=== PATIENT | female | born 1985 | race Caucasian/White ===

== ENCOUNTER 2018-01-24 18:12 | Day surgery (SDC) | payer OTHER ==
--- NOTE | 2018-01-24 20:40 | ULT ---
LIMITED OB ULTRASOUND: Date: 01/24/18 PROVIDED CLINICAL HISTORY: Placental location. FINDINGS: A single, viable intrauterine gestation is documented in breech presentation. Heart rate of 150 beats /minute. Placenta is anteriorly located, without evidence for previa. There is [id number] diminish ed echogenicity subjacent to the amniotic membrane covering the placenta spanning the majority of the craniocaudal dimension of the placenta. There is no evidence for flow within this area. This may ref lect subamniotic fluid such as blood products. There is no evidence for a placental abruption. Cervic al length is 3.5 cm. IMPRESSION: Single, live intrauterine gestation as described above. Subamniotic fluid echogenicity may reflect bl ood products. POS: [facility]
--- NOTE | 2018-01-24 20:47 | PRG ---
DATE OF SERVICE: 01/24/2018 TIME OF SERVICE: 1945 hours. PRESENTING COMPLAINT: Lower abdominal cramps. HISTORY OF PRESENT ILLNESS: Ms. Simpson is a 32-year-old 13, para 5, AB 8, at 20 weeks, who se es Dr. Bhavana Ramsay for antepartum care. The patient reports cramps without bleeding, rupture of memb ranes with active fetus today. She notes that she was started several days ago on Flagyl for bacteri al vaginosis. [employer] HISTORY: x4. Reports miscarriages and terminations for other pregnancies. Her blood typ e is O positive. HBsAg and HIV negative in previous , GC and chlamydia negative in previous . Antepartum record for this is not available. PAST MEDICAL HISTORY: Depression, blood transfusion, and cholecystectomy. PAST SURGICAL HISTORY: Cholecystectomy. ALLERGIES: PENICILLIN, ASPIRIN, AND DEMEROL. SOCIAL HISTORY: Denies tobacco, alcohol, or IV drug abuse. MEDICATIONS: vitamins and Flagyl 500 b.i.d. x5 days. PHYSICAL EXAMINATION: GENERAL: White female, in no acute distress. VITAL SIGNS: Blood pressure 102/59, pulse 93, temperature 99.0, respirations 18. HEENT: Within normal limits. LUNGS: Clear to auscultation bilaterally. HEART: Regular rate and rhythm. ABDOMEN: Soft and nontender without rebound or guarding. PELVIC: Vulva is without lesions. Vagina, no significant discharge noted externally. Digital exam was deferred. EXTREMITIES: Without clubbing, cyanosis or edema. RADIOLOGY: Ultrasound was performed, which revealed a 3.5 cm cervical length with normal amniotic fl uid. Subamniotic bleed was noted. No blood flow was noted in the subamniotic hemorrhage suggesting that it is a distant etiology. LABORATORY STUDIES: Cath UA was ordered. The patient refused cath UA. IMPRESSION: No evidence of labor. Suspect discomforts of along with bacterial vag inosis. Incidental finding of subamniotic bleed noted. Of note, subamniotic hemorrhages are not unc ommon and are not associated with poor outcome in general. PLAN: Recommend the patient keep scheduled followup with Dr. Ramsay and finish antibiotics as prescrib ed.
== END 2018-01-24 19:50 | disposition home or self-care (01) ==
LOC: L&D/OP 18:12
PROVIDERS: ATTEND Family Medicine
DX: O99.89 Other specified diseases and conditions complicating pregnancy, childbirth and the puerperium (principal); R10.30 Lower abdominal pain, unspecified; Z88.0 Allergy status to penicillin; Z88.8 Allergy status to other drugs, medicaments and biological substances; Z79.899 Other long term (current) drug therapy; Z3A.20 20 weeks gestation of pregnancy; Z87.59 Personal history of other complications of pregnancy, childbirth and the puerperium
CPT/HCPCS: 76815; 99282

== ENCOUNTER 2018-03-25 13:28 | Day surgery (SDC) | payer OTHER ==
[2018-03-25 14:04] VITALS: BP 106/57; TEMP 96.6; BMI 23.1
--- NOTE | 2018-03-25 14:25 | PDOC.LDHP ---
Labor and Delivery H&P HPI: Patient seen in L&D triage Bed B as a patient of Dr Ramsay Reason for eval: lower pelvic pressure Time: 1415 HPI: 33 ....at 29 weeks 2 Days here for lower pelvic pains/possible contractions. No VB, no dysuria, no fevers. States some abnormal dsch. No recent sex. No HX PTB, no CS HX Review of systems: complete ROS done and negative as per HPI Current gestational age (weeks): 29 (2 days) Dating criteria: last menstrual period Grav: 14 Para: 5 OB History Details: 4 SAB, 2 EL ABs Current complications: none Abnormal US findings: No Current medications: pre-comfort vitamins Previous surgical history: other (T&A, Celsa) Allergies/Adverse Reactions: Allergies Allergy/AdvReac Type Severity Reaction Status Date / Time Penicillins Allergy Intermediate Verified 03/25/18 14:05 aspirin Allergy Verified 03/25/18 14:05 meperidine HCl [From Demerol] Allergy Verified 03/25/18 14:05 Social history: none - Physical Exam Vital signs reviewed and normal: yes General: NAD Heart: RRR Lungs: CTAB Abdomen: gravid FHT: category 1 [place] contractions every: none - Assessment Threatened PTL, Grand multip, 29 weeks 2 days - Plan Plan: observation in L&D, other (I have ordered a VP3 and FFN, I have ordered a cervical length. Also ordered a cath UA. Obs for now)
--- NOTE | 2018-03-25 14:48 | PDOC.EVN ---
Event Note - Event Note Event Note: As sono was entering the room for cervical check, she stated to me and the rod buster helper that she was told that there was "blood behind the placenta" diagnosed on earlier sono. This sounds like maybe a subchorionic bleed. Info given. Await FFN, sono length check, VP3 and cath UA.
[2018-03-25 15:08] LABS: FFN Internal QC Analyzer PASS (PASS); FFN Internal QC Cassette PASS (PASS); Fetal Fibronectin Negative (Negative)
[2018-03-25 15:11] LABS: Bilirubin Negative (Negative); Blood, Urine Negative (Negative); Clarity CLEAR (Clear); Glucose, Urine (Dipstick) Negative (Negative); Leukocyte Small (Negative); Nitrite Negative (Negative); Protein, Urine (Dipstick) Negative (Neg-Trace); Specific Gravity, Urine 1.019 (1.002-1.036)
[2018-03-25 15:15] LABS: Bacteria/HPF None Seen HPF (None Seen); Hyaline Casts/LPF 7-10 HYALINE CAST LPF (0-3 Hyaline); Pathc Cast-AUWi Flag 1.74 (0-2.49); RBC/HPF None Seen HPF (0-3); WBC/HPF 0-3 HPF (0-3)
[2018-03-25 15:27] LABS: Renal Epithelial None Seen HPF (0-3); Transitional Epithelial NONE SEEN HPF (0-3)
--- NOTE | 2018-03-25 15:34 | ULT ---
ULTRASOUND OB LIMITED: HISTORY: 29 weeks. Possible contractions. COMPARISON: Ultrasound 01/24/18. FINDINGS: Real-time, edwards scale, and color evaluation of the cervix was performed. The cervical length is appr oximately 4 cm. Placenta is anterior. IMPRESSION: Cervical length approximately 4 cm. POS: [facility]
--- NOTE | 2018-03-25 16:01 | PDOC.EVN ---
Event Note - Event Note Event Note: Lab check: UA not significantly abnormal for UTI, VP3 neg, FFN neg and cervical length was 4cm. BPs ok and FHTs reassurring. OK for outpatient care. DX: discomforts of
== END 2018-03-25 16:19 | disposition home or self-care (01) ==
LOC: L&D/OP 13:28
PROVIDERS: ATTEND Family Medicine
DX: O47.03 False labor before 37 completed weeks of gestation, third trimester (principal); Z88.6 Allergy status to analgesic agent; Z88.0 Allergy status to penicillin; Z3A.29 29 weeks gestation of pregnancy
CPT/HCPCS: 51701; 76815; 81003; 81015; 82731; 87480; 87510; 87660; 99284

== ENCOUNTER 2018-05-23 17:42 | Day surgery (SDC) | payer OTHER ==
[2018-05-23 18:08] VITALS: BMI 24.3
--- NOTE | 2018-05-23 19:41 | PDOC.LDHP ---
Labor and Delivery H&P Chief complaint: decreased movement HPI: 33 y/o at 37w5d, patient of Dr. Ramsay, presents with decreased FM today , vaginal pain, and diarrhea. Denies vb, LOF, ctx, or other concerns. ROS neg for HEENT, cv, pulm, gi, gu, neuro, psych, skin, musculoskeletal, or constitutional symptoms other than mentioned OB History Details: 5 prior term SVDs Current complications: none Past Medical History: None Current medications: pre-comfort vitamins Previous surgical history: cholecystectomy, other (tonsillectomy) Allergies/Adverse Reactions: Allergies Allergy/AdvReac Type Severity Reaction Status Date / Time Penicillins Allergy Intermediate Verified 03/25/18 14:05 aspirin Allergy Verified 03/25/18 14:05 meperidine HCl [From Demerol] Allergy Verified 05/23/18 18:11 Social history: none - Physical Exam Vital signs reviewed and normal: yes General: NAD, resting Lungs: nonlabored breathing Abdomen: gravid Extremeties: no edema FHT: category 1 (130s, mod variability, + accels, single variable decel) Britt contractions every: none - Vaginal Exam cm dilated: 1 (posterior) Effacement: 0% Station: -3 - Assessment 33 y/o at 37w5d with reassuring status. I performed a bedside ultrasound for BPP (04/13 with JAM of 12cm) after a single variable deceleration. No e/o active labor. - Plan -: D/c home with precautions. Advised to keep appointment for tomorrow. Also advised to stay well hydrated while diarrhea persists.
== END 2018-05-23 19:35 | disposition home or self-care (01) ==
LOC: L&D/OP 17:42
PROVIDERS: ATTEND Family Medicine
DX: O36.8130 Decreased fetal movements, third trimester, not applicable or unspecified (principal); O99.89 Other specified diseases and conditions complicating pregnancy, childbirth and the puerperium; R19.7 Diarrhea, unspecified; R10.2 Pelvic and perineal pain; Z3A.37 37 weeks gestation of pregnancy; Z79.899 Other long term (current) drug therapy; Z88.0 Allergy status to penicillin; Z88.5 Allergy status to narcotic agent; Z88.8 Allergy status to other drugs, medicaments and biological substances
CPT/HCPCS: 76815; 99282

== ENCOUNTER 2018-06-01 05:30 | Inpatient (IN) | payer OTHER ==
[2018-06-01] MEDS ORDERED: NS w/ Oxytocin 10 units 500 ML ONE (07:34)
[2018-06-01] MEDS ORDERED: DISCONTINUE ALL PREVIOUS NARCOTICS FS SCH (07:45)
[2018-06-01] MEDS ORDERED: Bupivacaine 0.5% 20 ML, fentaNYL Citrate/PF 400 MCG in Sodium Chloride 0.9% 72 ML EPIDURAL SCH (07:45)
[2018-06-01] MEDS ORDERED: Misoprostol 200 MCG TAB PR PRN (08:26)
[2018-06-01] MEDS ORDERED: HYDROcodone/Acetaminophen 5/325 mg Tablet PO PRN (08:26)
[2018-06-01] MEDS ORDERED: Acetaminophen 500 MG TAB PO PRN (08:26)
[2018-06-01] MEDS ORDERED: Promethazine HCl 25 MG/ML VIAL IM PRN ×2 (08:26→14:55)
[2018-06-01] MEDS ORDERED: Methylergonovine 0.2 MG/ML VIAL IM PRN (08:26)
[2018-06-01] MEDS ORDERED: Butorphanol Tartrate 1 MG/ML VIAL SLOW IVP PRN (08:26)
[2018-06-01] MEDS ORDERED: Lidocaine 1% (PF) 30 ML VIAL SC PRN (08:26)
[2018-06-01] MEDS ORDERED: Carboprost 250 MCG/ML AMP IM PRN (08:26)
[2018-06-01] MEDS ORDERED: Ondansetron HCl/PF 4 MG/2 ML Vial IVP PRN ×2 (08:26→14:55)
[2018-06-01] MEDS ORDERED: Ibuprofen 800 MG TAB PO PRN (08:26)
[2018-06-01] MEDS ORDERED: Dextrose 5%-Lactated Ringers 1,000 ML IV SCH (08:30)
[2018-06-01] MEDS ORDERED: NS w/ Oxytocin 10 units 500 ML IV SCH (08:30)
[2018-06-01 08:44] LABS: Hemoglobin 10.2 g/dL (12.0-16.0); Mean Corpuscular HGB CONC 33.8 g/dL (32.0-36.0); Mean Corpuscular Hemoglobin 31.9 pg (27.0-31.0); Mean Corpuscular Volume 94.4 fL (78.0-98.0); Mean Platelet Volume 7.3 fL (7.4-10.4); Platelet Count 322 thou/uL (130-400); RBC Distribution Width 11.3 % (11.5-14.5); White Blood Cell (WBC) Count 15.8 thou/uL (4.8-10.8)
--- NOTE | 2018-06-01 09:13 | PDOC.LDHP ---
Labor and Delivery H&P Chief complaint: scheduled induction HPI: 39 week IUP. Here for elective IOL at term. Current gestational age (weeks): 39 Due date: 06/08/18 Dating criteria: first trimester ultrasound Grav: 10 Para: 5 OB History Details: SAB x4 x5 Abnormal US findings: No Past Medical History: Anemia of - treated with iron infusion March 2018. H/O gallstones s/p lap kota Current medications: pre- vitamins, iron Previous surgical history: cholecystectomy, other (Tonsillectomy) Allergies/Adverse Reactions: Allergies Allergy/AdvReac Type Severity Reaction Status Date / Time Penicillins Allergy Intermediate Verified 03/25/18 14:05 aspirin Allergy Verified 03/25/18 14:05 meperidine HCl [From Demerol] Allergy Verified 05/23/18 18:11 Social history: drug use (Marijuana) - Physical Exam General: NAD, resting, breathing through contractions, other Heart: RRR Lungs: CTAB Abdomen: gravid Extremeties: no edema FHT: category 1, variability present [place] contractions every: irregular - Vaginal Exam cm dilated: 2 Effacement: 50% Station: -1 - OB Labs Blood type: O RH: positive Antibody Screen: negative HIV: negative RPR: negative HEPSAg: negative 1 hour GCT: negative GBS: negative Urine drug screen: positive (Marijuana) Rubella: non-immune - Assessment L&D Assessment: elective induction at term - Plan Plan: admit to L&D, labor augmentation if indicated
[2018-06-01 09:32] LABS: HBSAg Index 0.28 S/CO (0-0.99); Hep B Surf Ag Non-Reactive S/CO (NonReactive)
[2018-06-01 09:33] LABS: Syphilis Antibody Nonreactive (Nonreactive); Syphilis Antibody Index 0.05 S/CO (<1.00 Non-Reactive)
[2018-06-01] MEDS: Lactated Ringer's 1,000 ML IV SCH ×2 (11:18→13:42)
--- NOTE | 2018-06-01 12:55 | PDOC.EVN ---
Event Note - Event Note Event Note: Came to bedside to AROM. SVE 380/0. AROM without complications with clear fluid. FHT 145, moderate variability, many accelerations, no decelerations. Category I FHT.
[2018-06-01] MEDS ORDERED: Eucerin (Mineral Oil/Petrolatum,White) 30 gm Jar TOP PRN (14:55)
[2018-06-01] MEDS ORDERED: ePHEDrine/0.9% NaCl/PF SYRINGE 50 mg/10 ml SLOW IVP PRN (14:55)
[2018-06-01] MEDS ORDERED: diphenhydrAMINE 50 MG/ML VIAL IVP PRN (14:55)
[2018-06-01] MEDS ORDERED: Lactated Ringer's 500 ML IV PRN (14:55)
[2018-06-01] MEDS ORDERED: Naloxone HCl 0.4 mg/ml Vial IVP PRN ×2 (14:55)
[2018-06-01] MEDS ORDERED: Acetaminophen 325 MG TAB PO PRN (14:55)
[2018-06-01] MEDS ORDERED: Communication Order-Pharmacy FS SCH (15:00)
[2018-06-01] MEDS ORDERED: fentaNYL Citrate/PF 400 MCG, Bupivacaine 0.5% 20 ML in Sodium Chloride 0.9% 72 ML EPIDURAL SCH (15:00)
[2018-06-01] MEDS: NS / Oxytocin 40 units/1000ml 1,000 ML IV PRN ×2 (17:20→18:27)
[2018-06-01] MEDS ORDERED: Misoprostol 200 MCG TAB ONE (17:28)
[2018-06-01] MEDS ORDERED: Preparation H Ointment 28 GM TUBE PR PRN (22:20)
[2018-06-01] MEDS ORDERED: Milk Of Magnesia 30 ML UDCUP PO PRN (22:20)
[2018-06-01] MEDS ORDERED: Bisacodyl 10 MG SUPP PR PRN (22:20)
[2018-06-01] MEDS ORDERED: NS / Oxytocin 40 units/1000ml 1,000 ML IV SCH (22:20)
[2018-06-01] MEDS ORDERED: Ibuprofen 800 MG TAB PO SCH (22:45)
[2018-06-01] MEDS ORDERED: Docusate Calcium (SURFAK) 240 MG CAP PO SCH (22:45)
[2018-06-02] MEDS: Ibuprofen 800 MG TAB PO SCH ×3 (06:09→21:07)
[2018-06-02 06:42] LABS: Hemoglobin 9.2 g/dL (12.0-16.0); Mean Corpuscular HGB CONC 32.7 g/dL (32.0-36.0); Mean Corpuscular Hemoglobin 31.4 pg (27.0-31.0); Mean Platelet Volume 6.8 fL (7.4-10.4); Platelet Count 277 thou/uL (130-400); RBC Distribution Width 11.3 % (11.5-14.5); Red Blood Cell (RBC) Count 2.92 mill/uL (4.20-5.40); White Blood Cell (WBC) Count 15.1 thou/uL (4.8-10.8)
[2018-06-02] MEDS ORDERED: Adacel (T-DAP) 0.5 ML VIAL IM ONE (09:00)
[2018-06-02] MEDS ORDERED: Measles/Mumps/Rubella 10 MCG/0.5 ML VIAL SC ONE (09:00)
[2018-06-02] MEDS: HYDROcodone/Acetaminophen 5/325 mg Tablet PO PRN ×2 (09:26→20:03)
[2018-06-02] MEDS: Ferrous Sulfate 325 MG TAB PO SCH ×2 (09:27→17:13)
[2018-06-02] MEDS: Docusate Calcium (SURFAK) 240 MG CAP PO SCH ×2 (09:28→20:02)
[2018-06-03] MEDS: Ibuprofen 800 MG TAB PO SCH ×2 (05:59→13:58)
[2018-06-03 08:01] VITALS: BP 109/55; TEMP 97.8
[2018-06-03] MEDS: Ferrous Sulfate 325 MG TAB PO SCH (08:51)
[2018-06-03] MEDS: Docusate Calcium (SURFAK) 240 MG CAP PO SCH (08:51)
--- NOTE | 2018-06-03 13:26 | PDOC.PP ---
Post Progress Note Post Day #: 1 Subjective: No c/o. Some pain but controlled. Bottle feeding. PO intake tolerated: yes Flatus: yes Ambulation: yes Vital Signs (12 hours) Temp Pulse Resp BP 06/03/18 08:00 97.8 F 61 20 109/55 L Weight Weight 6.173 oz - Physical Examination General: NAD Cardiovascular: no m/r/g, RRR Respiratory: clear to auscultation bilaterally, non-labored breathing Abdominal: + bowel sounds, lochia, no distention, appropriately TTP Result Diagrams: 06/02/18 06:12 Additional Labs: Post Labs Blood Type O POSITIVE 06/01/18 06:50 Hep Bs Antigen Non-Reactive S/CO (NonReactive) 06/01/18 06:50 (1) Vaginal delivery Code(s): O80 - ENCOUNTER FOR FULL-TERM UNCOMPLICATED DELIVERY Status: Acute - Assessment/Plan Routine care. Home 06/03
--- NOTE | 2018-06-03 13:27 | PDOC.PP ---
Post Progress Note Post Day #: 2 Subjective: No c/o. Cramping but bleeding OK. Ready for D/C. PO intake tolerated: yes Flatus: yes Ambulation: yes Vital Signs (12 hours) Temp Pulse Resp BP 06/03/18 08:00 97.8 F 61 20 109/55 L Weight Weight 6.173 oz - Physical Examination General: NAD Cardiovascular: no m/r/g, RRR Respiratory: clear to auscultation bilaterally, non-labored breathing Abdominal: + bowel sounds, lochia, no distention, appropriately TTP Result Diagrams: 06/02/18 06:12 Additional Labs: Post Labs Blood Type O POSITIVE 06/01/18 06:50 Hep Bs Antigen Non-Reactive S/CO (NonReactive) 06/01/18 06:50 (1) Vaginal delivery Code(s): O80 - ENCOUNTER FOR FULL-TERM UNCOMPLICATED DELIVERY Status: Acute - Assessment/Plan Routine care D/C home Iron daily until 6 week PP check Pelvic rest
== END 2018-06-03 15:25 | disposition home or self-care (01) | DRG 775 ==
LOC: L&D 05:55 → 3SW 22:10
PROVIDERS: ADMIT Family Medicine; ATTEND Family Medicine
PROC: 10E0XZZ Delivery of Products of Conception, External Approach (ICD-10-PCS; principal; 2018-06-01)
DX: O99.02 Anemia complicating childbirth (principal); Z3A.39 39 weeks gestation of pregnancy; Z37.0 Single live birth
CPT/HCPCS: 36415; 51702; 85027; 86780; 86850; 86900; 86901; 87340; 90707; 90715; J1200; J3010; J3490; J7050

== ENCOUNTER 2020-09-11 01:02 | Emergency (ER) | payer SELFPAY ==
[2020-09-11 02:03] LABS: #Basophils 0.1 thou/uL (0.0-0.2); #Eosinphils 0.1 thou/uL (0.0-0.7); #Lymphocytes 2.2 thou/uL (1.20-3.40); #Neutrophils 7.4 thou/uL (1.40-6.50); %Basophils 0.5 % (0.0-1.0); %Eosinophils 1.3 % (0.0-10.0); %Lymphocytes 20.5 % (21.0-51.0); %Monocytes 8.8 % (0.0-10.0); %Neutrophils 68.8 % (42.0-75.0); Hemoglobin 11.3 g/dL (12.0-16.0); Mean Corpuscular HGB CONC 32.5 g/dL (32.0-36.0); Mean Corpuscular Hemoglobin 30.4 pg (27.0-31.0); Mean Corpuscular Volume 93.6 fL (78.0-98.0); Mean Platelet Volume 6.5 fL (7.4-10.4); Platelet Count 331 thou/uL (130-400); RBC Distribution Width 11.6 % (11.5-14.5); Red Blood Cell (RBC) Count 3.72 mill/uL (4.20-5.40); White Blood Cell (WBC) Count 10.8 thou/uL (4.8-10.8)
[2020-09-11 02:24] LABS: ALT (SGPT) 14 U/L (8-55); AST (SGOT) 15 U/L (5-34); Albumin 4.1 g/dL (3.5-5.0); Alkaline Phosphatase 84 U/L (40-110); Anion Gap 14 mmol/L (10-20); BUN (Urea Nitrogen) 15 mg/dL (7.0-18.7); Bilirubin, Total 0.2 mg/dL (0.2-1.2); Calc. Creatinine Clearance 0 mL/min (70-130); Carbon Dioxide 26 mmol/L (22-29); Chloride 103 mmol/L (98-107); Glucose 102 mg/dL (70-105); Lipase 39 U/L (8-78); Potassium 3.8 mmol/L (3.5-5.1); Protein, Total 7.1 g/dL (6.0-8.3); Sodium 139 mmol/L (136-145)
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
[2020-09-11] MEDS ORDERED: Iopamidol-370 76% 500 ML 1 ML ONE (13:04)
== END 2020-09-11 03:45 | disposition home or self-care (01) ==
LOC: ERS 01:02
DX: S92.302A Fracture of unspecified metatarsal bone(s), left foot, initial encounter for closed fracture (principal); R10.13 Epigastric pain; V89.2XXA Person injured in unspecified motor-vehicle accident, traffic, initial encounter
CPT/HCPCS: 71275; 74177; 80053; 83690; 85025; Q9967

== ENCOUNTER 2020-12-12 01:20 | Emergency (ER) | payer SELFPAY ==
[2020-12-12 01:43] LABS: #Eosinphils 0.1 thou/uL (0.0-0.7); #Lymphocytes 2.9 thou/uL (1.20-3.40); #Monocytes 1.2 thou/uL (0.11-0.59); #Neutrophils 9.8 thou/uL (1.40-6.50); %Basophils 0.3 % (0.0-1.0); %Lymphocytes 20.5 % (21.0-51.0); %Monocytes 8.7 % (0.0-10.0); %Neutrophils 69.5 % (42.0-75.0); Hemoglobin 11.8 g/dL (12.0-16.0); Mean Corpuscular HGB CONC 33.8 g/dL (32.0-36.0); Mean Corpuscular Hemoglobin 32.1 pg (27.0-31.0); Mean Corpuscular Volume 94.8 fL (78.0-98.0); Mean Platelet Volume 6.7 fL (7.4-10.4); Platelet Count 314 thou/uL (130-400); RBC Distribution Width 12.2 % (11.5-14.5); Red Blood Cell (RBC) Count 3.67 mill/uL (4.20-5.40); White Blood Cell (WBC) Count 14.1 thou/uL (4.8-10.8)
[2020-12-12 02:04] LABS: ALT (SGPT) 8 U/L (8-55); AST (SGOT) 14 U/L (5-34); Albumin 4.2 g/dL (3.5-5.0); Alkaline Phosphatase 97 U/L (40-110); Anion Gap 15 mmol/L (10-20); BUN (Urea Nitrogen) 8 mg/dL (7.0-18.7); Bilirubin, Total 0.2 mg/dL (0.2-1.2); Calc. Creatinine Clearance 0 mL/min (70-130); Calcium 8.9 mg/dL (7.8-10.44); Carbon Dioxide 22 mmol/L (22-29); Chloride 105 mmol/L (98-107); Glucose 108 mg/dL (70-105); Potassium 3.5 mmol/L (3.5-5.1); Protein, Total 7.2 g/dL (6.0-8.3); Sodium 138 mmol/L (136-145)
[2020-12-12] MEDS ORDERED: Acetaminophen 500 MG TAB ONE (02:12)
[2020-12-12] MEDS ORDERED: Clindamycin 150 MG CAP ONE (02:12)
== END 2020-12-12 02:30 | disposition home or self-care (01) ==
LOC: ERS 01:20
DX: L03.115 Cellulitis of right lower limb (principal); F17.210 Nicotine dependence, cigarettes, uncomplicated
CPT/HCPCS: 36415; 80053; 85025

== ENCOUNTER 2021-07-19 15:20 | Emergency (ER) | payer SELFPAY ==
[2021-07-19 15:57] LABS: Bacteria/HPF None Seen HPF (None Seen); Bilirubin Negative (Negative); Blood, Urine Negative (Negative); Clarity Clear (Clear); Glucose, Urine (Dipstick) Normal (Negative); Ketone, Urine Negative (Negative); Leukocyte 25 Leu/uL (Negative); Nitrite Negative (Negative); Protein, Urine (Dipstick) Negative (Neg-Trace); RBC/HPF 0-3 HPF (0-3); Specific Gravity, Urine 1.006 (1.002-1.036); Squamous Epithelial 0-3 HPF (0-3); Urobilinogen Normal mg/dL (Less than 2); WBC/HPF 0-3 HPF (0-3); pH, Urine 7.5 (5.0-9.0)
[2021-07-19 16:02] LABS: Pregnancy Test - Urine (BHCG) POSITIVE (Negative); Pregu Control Background? CLEAR/WHITE (CLR/WHITE); Pregu Control Bar Appear? YES (CONTROL BAR); Specific Gravity 1.006 (1.002-1.036)
[2021-07-19 16:03] LABS: #Lymphocytes 1.9 thou/uL (1.20-3.40); #Monocytes 0.8 thou/uL (0.11-0.59); #Neutrophils 7.1 thou/uL (1.40-6.50); %Basophils 0.5 % (0.0-1.0); %Eosinophils 0.5 % (0.0-10.0); %Lymphocytes 19.2 % (21.0-51.0); %Monocytes 7.7 % (0.0-10.0); %Neutrophils 72.1 % (42.0-75.0); Hemoglobin 12.5 g/dL (12.0-16.0); Mean Corpuscular HGB CONC 34.8 g/dL (32.0-36.0); Mean Corpuscular Hemoglobin 33.3 pg (27.0-31.0); Mean Corpuscular Volume 95.7 fL (78.0-98.0); Mean Platelet Volume 6.5 fL (7.4-10.4); Platelet Count 344 thou/uL (130-400); RBC Distribution Width 11.2 % (11.5-14.5); Red Blood Cell (RBC) Count 3.75 mill/uL (4.20-5.40); White Blood Cell (WBC) Count 9.8 thou/uL (4.8-10.8)
== END 2021-07-19 17:40 | disposition home or self-care (01) ==
LOC: ERS 15:20
DX: O20.0 Threatened abortion (principal); O99.011 Anemia complicating pregnancy, first trimester; O99.331 Smoking (tobacco) complicating pregnancy, first trimester; F17.210 Nicotine dependence, cigarettes, uncomplicated; Z3A.01 Less than 8 weeks gestation of pregnancy
CPT/HCPCS: 36415; 76856; 81003; 81015; 81025; 84702; 85025; 86900; 86901

== ENCOUNTER 2021-07-19 22:25 | Emergency (ER) | payer SELFPAY | END 2021-07-20 00:04 | LOC: ERS 22:25 | DX: S09.90XA Unspecified injury of head, initial encounter (principal); S70.01XA Contusion of right hip, initial encounter; M25.561 Pain in right knee; M25.562 Pain in left knee; W18.2XXA Fall in (into) shower or empty bathtub, initial encounter; D64.9 Anemia, unspecified; F17.210 Nicotine dependence, cigarettes, uncomplicated | CPT/HCPCS: 99283 ==

== ENCOUNTER 2021-07-24 19:45 | Emergency (ER) | payer SELFPAY | END 2021-07-24 22:30 | disposition home or self-care (01) | LOC: ERS 19:45 | DX: O20.0 Threatened abortion (principal); O09.521 Supervision of elderly multigravida, first trimester; O99.331 Smoking (tobacco) complicating pregnancy, first trimester; F17.210 Nicotine dependence, cigarettes, uncomplicated; Z3A.01 Less than 8 weeks gestation of pregnancy | CPT/HCPCS: 36415; 84702; 99284 ==

== ENCOUNTER 2023-06-19 20:42 | Observation (INO) | payer OTHER ==
[2023-06-19] MEDS ORDERED: Ondansetron ODT 4 MG TAB ONE (21:19)
[2023-06-19] MEDS ORDERED: Morphine 4 MG/ML VIAL ONE (21:19)
[2023-06-20] MEDS ORDERED: Morphine 4 MG/ML VIAL ONE (00:12)
[2023-06-20] MEDS ORDERED: fentaNYL 50 mcg/mL 1 mL Vial ONE (00:31)
[2023-06-20] MEDS ORDERED: Ibuprofen 800 MG TAB ONE (01:29)
[2023-06-20] MEDS ORDERED: HYDROmorphone 0.5 MG/0.5 ML SYRINGE ONE (02:32)
[2023-06-20] MEDS ORDERED: Morphine 2 MG/ML VIAL SLOW IVP PRN (04:16)
[2023-06-20] MEDS ORDERED: traMADol HCl 50 MG TAB PO PRN (04:17)
[2023-06-20 04:30] VITALS: BMI 23.3
[2023-06-20] MEDS: traMADol HCl 50 MG TAB PO SCH ×2 (05:44→12:00)
[2023-06-20] MEDS: Acetaminophen 500 MG TAB PO SCH ×2 (05:45→12:02)
[2023-06-20] MEDS: Ibuprofen 200 MG TAB PO SCH ×2 (05:46→15:17)
[2023-06-20] MEDS ORDERED: Ondansetron PF 4 MG/2 ML Vial IVP PRN (08:15)
[2023-06-20] MEDS ORDERED: Gabapentin 100 MG CAP PO SCH (09:00)
[2023-06-20] MEDS ORDERED: Cyclobenzaprine 10 MG TAB PO PRN (09:00)
[2023-06-20] MEDS ORDERED: Famotidine/PF 20 mg/2ml Vial SLOW IVP SCH (09:00)
[2023-06-20] MEDS: Gabapentin 300 MG CAP PO SCH ×2 (09:16→15:18)
[2023-06-20 13:57] VITALS: TEMP 98
[2023-06-20 15:20] VITALS: BP 90/67
== END 2023-06-20 16:12 | disposition home or self-care (01) ==
LOC: ERS 20:42 → SURG B 06-20 02:31
PROVIDERS: ADMIT Surgery; ATTEND Surgery
DX: S92.001A Unspecified fracture of right calcaneus, initial encounter for closed fracture (principal); Z88.0 Allergy status to penicillin; Z88.6 Allergy status to analgesic agent; Z88.8 Allergy status to other drugs, medicaments and biological substances; W19.XXXA Unspecified fall, initial encounter
CPT/HCPCS: 96372; 96374; 96375; G0378; J1170; J2270; J2272; J2405; J3010; Q0162; S0028

== ENCOUNTER 2024-03-01 22:20 | Emergency (ER) | payer OTHER ==
[2024-03-02] MEDS ORDERED: HYDROcodone/Acetaminophen 5/325 mg Tablet ONE (00:06)
[2024-03-02] MEDS ORDERED: Ondansetron PF 4 MG/2 ML Vial ONE (00:06)
[2024-03-02] MEDS ORDERED: Dicyclomine 20 MG TAB ONE (00:06)
[2024-03-02 00:17] LABS: #Basophils 0.03 10x3/uL (0.0-0.2); %Basophils 0.3 % (0.0-1.0); %Eosinophils 0.9 % (0.0-10.0); %Monocytes 10.2 % (0.0-10.0); %Neutrophils 63.2 % (42.0-75.0); Hematocrit 38.3 % (36.0-47.0); Hemoglobin 12.9 g/dL (12.0-16.0); Mean Corpuscular HGB CONC 33.7 g/dL (32.0-36.0); Mean Corpuscular Hemoglobin 30.6 pg (27.0-31.0); Mean Platelet Volume 9.7 fL (7.4-10.4); Platelet Count 267 10x3/uL (130-400); RBC Distribution Width 12.1 % (11.5-14.5); Red Blood Cell (RBC) Count 4.21 mill/uL (4.20-5.40)
[2024-03-02 00:33] LABS: ALT (SGPT) 30 U/L (8-55); AST (SGOT) 16 U/L (5-34); Alkaline Phosphatase 83 U/L (40-110); Anion Gap 15 mmol/L (10-20); BUN (Urea Nitrogen) 13 mg/dL (7.0-18.7); Bilirubin, Total 0.2 mg/dL (0.2-1.2); Calc. Creatinine Clearance 0 mL/min (70-130); Calcium 9.8 mg/dL (7.8-10.44); Carbon Dioxide 24 mmol/L (22-29); Chloride 106 mmol/L (98-107); Estimated GFR 101; Globulin 3.6 g/dL (2.4-3.5); Glucose 100 mg/dL (70-105); Potassium 3.6 mmol/L (3.5-5.1); Protein, Total 7.6 g/dL (6.0-8.3); Sodium 141 mmol/L (136-145)
[2024-03-02 01:18] LABS: BHCG - Serum Negative (NEGATIVE); Pregs Control Background? CLEAR/WHITE (CLR/WHITE); Pregs Control Bar Appear? YES (CONTROL BAR)
[2024-03-02] MEDS ORDERED: Iopamidol-370 76% 500 ML MDV (1 ML CHARGE) ONE (15:10)
== END 2024-03-02 03:39 ==
LOC: ERS 22:20
DX: K43.9 Ventral hernia without obstruction or gangrene (principal); F17.210 Nicotine dependence, cigarettes, uncomplicated
CPT/HCPCS: 36416; 74177; 80053; 84703; 85025; 96374; J2405